=== PATIENT | female | born 1945 ===

== ENCOUNTER → 2021-01-04 15:00 | Outpatient (CLI) | payer OTHER | END | disposition home or self-care (01) | LOC: PPH VACUNA 12-30 15:00 | PROVIDERS: ATTEND Emergency Medicine Pediatric Emergency Medicine | DX: Z23 Encounter for immunization (principal) ==

== ENCOUNTER 2021-07-31 08:00 | Outpatient (CLI) | payer OTHER | END 2021-07-31 08:30 | disposition home or self-care (01) | LOC: PPH VACUNA 08:00 | PROVIDERS: ATTEND Emergency Medicine Pediatric Emergency Medicine | DX: Z23 Encounter for immunization (principal) ==

== ENCOUNTER 2022-06-11 13:18 | Outpatient (CLI) | payer OTHER | END 2022-06-11 13:33 | disposition home or self-care (01) | LOC: PPH VACUNA 13:18 | PROVIDERS: ATTEND Emergency Medicine Pediatric Emergency Medicine | DX: Z23 Encounter for immunization (principal) ==